=== PATIENT | female | born 1975 | race Caucasian/White ===

== ENCOUNTER → 2025-05-15 | Day surgery (SDC) | payer OTHER ==
[~2025-05-15] VITALS: Ht 157.5 cm; Wt 78.5 kg
[~2025-05-15] MED LIST: BALANCED SALT IRRIG SOLN COMB1 500ML OP NR; CYCLOPENTOLATE HCL 1% OPHTH DROPS 2ML RIGHTEYE ONE; FERR325T6 PO; HYALURONATE SODIUM 10MG/ML 0.55ML SYRINGE IO ONE; ONDANSETRON HCL 4MG/2ML INJ IV PRN; PHENYLEPHRINE HCL 10% OPHTH DROPS 5ML RIGHTEYE ONE; TROPICAMIDE 1% OPHTH DROPS 15ML RIGHTEYE ONE; TRYPAN BLUE 0.5 ML DISP.SYRIN IO ONE
[2025-05-15 07:21] LABS: UCG KIT EXPIRATION DATE 02/12/2027; UCG KIT LOT# 970990; UCG SCREEN NEGATIVE
[2025-05-15] MEDS: SODIUM CHLORIDE 0.9% 1,000 ML IV SCH (08:05)
== END | disposition home or self-care (01) ==
LOC: OR 06:51 → EDBD 09:30
PROVIDERS: ATTEND Ophthalmology
DX: H25.21 Age-related cataract, morgagnian type, right eye (principal); Z86.2 Personal history of diseases of the blood and blood-forming organs and certain disorders involving the immune mechanism; Z79.899 Other long term (current) drug therapy; Z98.890 Other specified postprocedural states
CPT/HCPCS: 66982; 81025; 82962; J3490; Q9957; V2632